=== PATIENT | male | born 1960 | race Caucasian/White ===

== ENCOUNTER 2018-02-25 12:03 | Inpatient (IN) | payer OTHER ==
[2018-02-25 16:22] VITALS: BMI 27.0
--- NOTE | 2018-02-25 17:32 | HP ---
CIWA Score - CIWA Score Nausea/Vomitin-No Nausea/No Vomiting Muscle Tremors: 3 Anxiety: 4-Mod. Anxious/Guarded Agitation: 3 Paroxysmal Sweats: 2 Orientation: 0-Oriented Tacttile Disturbances: 0-None Auditory Disturbances: 0-None Visual Disturbances: 1-Very Mild Sensitivity Headache: 0-None Present CIWA-Ar Total Score: 13 Admission ROS BHS - HPI Chief Complaint: I am here for detox Allergies/Adverse Reactions: Allergies Allergy/AdvReac Type Severity Reaction Status Date / Time No Known Allergies Allergy Verified 02/25/18 17:03 History of Present Illness: Patient is a 57 yo male with hx of heroin, alcohol and nicotine dependence is here fro detox. [facility]MTP at [place] [id number] [address] [phone], on methadone 60 mg daily, last medicated today. PMHX: DM II (oral meds ), HTN, Hep C, GERD, Liver cirrhosis, anxiety, insomnia, depression, bipolar dx. Denies suicidal / homicidal ideation . Reports past hx of suicide 3 years ago by attempting to overdose on Trazodone. [place] hx of seizures and blackouts. Last detox at [facility] 2 years go. Exam Limitations: No Limitations - Ebola screening Have you traveled outside of the country in the last 21 days: No (N) Have you had contact with anyone from an Ebola affected area: No Have you been sick,other than usual withdrawal symptoms: No Do you have a fever: No - Review of Systems Constitutional: Chills, Loss of Appetite, Changes in sleep, Unintentional Wgt. Loss EENT: reports: Blurred Vision (wears glasses) Respiratory: reports: SOB with Exertion (mostly at night) Cardiac: reports: No Symptoms Reported GI: reports: Indigestion Musculoskeletal: reports: No Symptoms Reported Integumentary: reports: No Symptoms Reported Neuro: reports: No Symptoms reported Endocrine: reports: Increased Thirst Hematology: reports: No Symptoms Reported Psychiatric: reports: Orientated x3, Anxious Other Systems: Reviewed and Negative Patient History - Patient Medical History Hx Anemia: No Hx Asthma: No Hx Chronic Obstructive Pulmonary Disease (COPD): No Hx Cancer: No Hx Cardiac Disorders: No Hx Congestive Heart Failure: No Hx Hypertension: Yes (on meds.) Hx Hypercholesterolemia: No Hx Pacemaker: No HX Cerebrovascular Accident: No Hx Seizures: No Hx Dementia: No Hx Diabetes: Yes (Type II) Hx Gastrointestinal Disorders: Yes (Acid reflux) Hx Liver Disease: Yes (Cirrhosis and Hep C ) Hx Genitourinary Disorders: No Hx Sexually Transmitted Disorders: No Hx Renal Disease (ESRD): No Hx Thyroid Disease: No Hx Human Immunodeficiency Virus (HIV): No (last teste 1.5 years ago ) Hx Hepatitis C: Yes (no tx ) Hx Depression: Yes Hx Suicide Attempt: Yes (Tried to overdose on trazadone.) Hx Bipolar Disorder: Yes Hx Schizophrenia: No - Patient Surgical History Past Surgical History: Yes Hx Abdominal Surgery: Yes (Umbillical and R inguinal hernia repair) Anesthesia Reaction: No - PPD History Previous Implant?: Yes Documented Results: Negative w/o proof Implanted On Prior [facility] Admission?: No - Reproductive History Patient is a Female of Child Bearing Age (11 -55 yrs old): No - Smoking Cessation Smoking history: Current every day smoker Have you smoked in the past 12 months: Yes Aproximately how many cigarettes per day: 20 Hx Chewing Tobacco Use: No Initiated information on smoking cessation: Yes 'Breaking Loose' booklet given: 02/25/18 - Substance & Tx. History Hx Alcohol Use: Yes Hx Substance Use: Yes Substance Use Type: Alcohol, Heroin Hx Substance Use Treatment: Yes (Last detox at [facility] 2 years go) - Substances Abused Alcohol Route: Oral Frequency: Daily Amount used: 2 pints vodka Age of first use: 20 Date of Last Use: 02/25/18 Family Disease History - Family Disease History Family Disease History: Diabetes: Mother ( ) Admission Physical Exam S - Vital Signs Vital Signs: Vital Signs - 24 hr 02/25/18 16:19 Temperature 97.7 F Pulse Rate 79 Respiratory 20 Rate Blood Pressure 166/99 - Physical General Appearance: Yes: Appropriately Dressed, Mild Distress, Sweating, Anxious , Other (restless) HEENTM: Yes: EOMI, Hearing grossly Normal, Normal ENT Inspection, Normocephalic , Normal Voice, RAJAT, Pharynx Normal, Tm's normal Respiratory: Yes: Chest Non-Tender, Lungs Clear, Normal Breath Sounds, No Respiratory Distress, No Accessory Muscle Use Neck: Yes: No masses,lesions,Nodules, Trachea in good position Breast: Yes: Breast Exam Deferred Cardiology: Yes: Regular Rhythm, Regular Rate Abdominal: Yes: Normal Bowel Sounds, Non Tender, Flat, Soft Genitourinary: Yes: Within Normal Limits Back: Yes: Normal Inspection Musculoskeletal: Yes: full range of Motion, Gait Steady, Pelvis Stable Extremities: Yes: Normal Capillary Refill, Normal Inspection, Normal Range of Motion, Non-Tender Neurological: Yes: fence repairman II-XII NML intact, Fully Oriented, Alert, Motor Strength 5/5, Depressed Affect Integumentary: Yes: Normal Color, Warm, Diaphoresis Lymphatic: Yes: Within Normal Limits - Diagnostic (1) Methadone maintenance therapy patient Current Visit: Yes Status: Acute (2) Alcohol dependence with uncomplicated withdrawal Current Visit: Yes Status: Acute (3) Diabetes mellitus with hyperglycemia Current Visit: Yes Status: Chronic Qualifiers: Diabetes mellitus type: type 2 Diabetes mellitus fci insulin use: without fci use Qualified Code(s): E11.65 - Type 2 diabetes mellitus with hyperglycemia (4) Hypertension Current Visit: Yes Status: Chronic Qualifiers: Hypertension type: essential hypertension Qualified Code(s): I10 - Essential (primary) hypertension (5) Liver cirrhosis Current Visit: Yes Status: Chronic Qualifiers: Ascites presence: unspecified (6) Hepatitis C Current Visit: Yes Status: Chronic Qualifiers: Viral hepatitis chronicity: chronic (7) GERD (gastroesophageal reflux disease) Current Visit: Yes Status: Chronic Qualifiers: Esophagitis presence: without esophagitis Qualified Code(s): K21.9 - Gastro -esophageal reflux disease without esophagitis (8) Anxious mood Current Visit: Yes Status: Acute Cleared for Admission S - Detox or Rehab [facility] Level of Care: Medically Managed Detox Regimen/Protocol: Librium [facility] Breath Alcohol Content Breath Alcohol Content: 0 Urine Drug Screen - Results Drug Screen Negative: No Urine Drug Screen Results: OPI-Opiates, MTD-Methadone, TCA-Tricyclic Antidepress
[2018-02-25] MEDS ORDERED: MAG HYDROX/AL HYDROX/SIMETH 30 ML UNIT-DOSE CUP PO PRN (17:45)
[2018-02-25] MEDS ORDERED: chlordiazePOXIDE HCL 25 MG CAPSULE PO PRN (17:45)
[2018-02-25] MEDS ORDERED: MAGNESIUM HYDROX 2400MG/30ML ORAL SUSPENSION 30 ML CUP PO PRN (17:45)
[2018-02-25] MEDS ORDERED: ACETAMINOPHEN 325 MG TABLET (FP) PO PRN (17:45)
[2018-02-25] MEDS ORDERED: hydrOXYzine PAMOATE 50 MG CAPSULE (FP) PO PRN (17:45)
[2018-02-25] MEDS ORDERED: P-EPHED 60MG/TRIPROLIDI 2.5MG TABLET PO PRN (17:45)
[2018-02-25] MEDS ORDERED: LOPERAMIDE HCL 2 MG CAPSULE PO PRN (17:45)
[2018-02-25] MEDS ORDERED: IBUPROFEN 400 MG TABLET (FP) PO PRN (17:45)
[2018-02-25] MEDS ORDERED: NICOTINE POLACRILEX 2 MG GUM BC PRN (17:45)
[2018-02-25] MEDS ORDERED: MAGNESIUM CITRATE 300 ML BOTTLE PO PRN (17:45)
[2018-02-25] MEDS ORDERED: guaiFENesin/D-METHORPHAN HB 10 ML UNIT-DOSE CUPS PO PRN (17:45)
[2018-02-25] MEDS ORDERED: MENTHOL/PHENOL 1 EACH UD MM PRN (17:45)
[2018-02-25] MEDS ORDERED: chlordiazePOXIDE HCL 25 MG CAPSULE PO ONE (18:15)
[2018-02-25] MEDS: metFORMIN HCL 500 MG TABLET (FP) PO SCH (18:58)
[2018-02-25] MEDS ORDERED: MELATONIN 5 MG TABLETS PO PRN (22:00)
[2018-02-25] MEDS: ATORVASTATIN CA 20 MG TABLET (FP) PO SCH (22:20)
[2018-02-25] MEDS: chlordiazePOXIDE HCL 25 MG CAPSULE PO SCH (22:20)
[2018-02-25] MEDS: THIAMINE HCL 100 MG TABLET (FP) PO SCH (22:20)
[2018-02-25 23:28] LABS: URINE APPEARANCE CLEAR; URINE BILIRUBIN NEGATIVE (<2.0 mg/dL); URINE COLOR YELLOW; URINE GLUCOSE (UA) 3+ (NEGATIVE); URINE KETONE NEGATIVE (NEGATIVE); URINE LEUK ESTERASE NEGATIVE (NEGATIVE); URINE NITRITE NEGATIVE (NEGATIVE); URINE PROTEIN NEGATIVE (NEGATIVE); URINE UROBILINOGEN NEGATIVE mg/dL (0.2-1.0)
[2018-02-26] MEDS: chlordiazePOXIDE HCL 25 MG CAPSULE PO SCH ×4 (05:51→22:18)
[2018-02-26] MEDS: metFORMIN HCL 500 MG TABLET (FP) PO SCH ×2 (06:26→17:39)
[2018-02-26] MEDS ORDERED: INSULIN (NOVOLOG) ASPART 100 UNITS/ML 10ML VIAL ONE ×2 (06:39→16:52)
[2018-02-26] MEDS ORDERED: INSULIN SLIDING SCALE (NOVOLOG) 1 VIAL SQ SCH (07:00)
[2018-02-26] MEDS ORDERED: METHADONE HCL 10 MG TABLET PO SCH (08:45)
[2018-02-26] MEDS ORDERED: METHADONE HCL 10 MG TABLET ONE (10:07)
[2018-02-26] MEDS ORDERED: METHADONE HCL 40 MG DISPERSABLE TABLET ONE (10:07)
[2018-02-26 11:01] LABS: MEAN PLT VOLUME 9.2 fl (7.5-11.1)
[2018-02-26 11:04] LABS: HEMOGLOBIN 12.4 GM/dL (11.7-16.9); MCH 29.6 pg (25.7-33.7); MCHC 34.5 g/dl (32.0-35.9); MEAN CELL VOLUME 85.9 fl (80-96); PLATELET COUNT 168 K/MM3 (134-434); RBC 4.19 M/mm3 (4.00-5.60); RDW 13.3 % (11.9-15.9)
--- NOTE | 2018-02-26 11:22 | CONSULT ---
[facility] Psychiatric Consult - Data Date of interview: 02/26/18 Admission source: [facility] Identifying data: This is a 57 year old single male unemployed and supported on SSI, residing alone in [facility]. Substance Abuse History: Reports using heroin injecting and snorting daily 20 bags, on MMTP 60 mg, daily alcohol consumption 2 pints. Medical History: DM II (oral meds ), HTN, Hep C, GERD, Liver cirrhosis, Psychiatric History: Patient reports history of anxiety and insomnia, reports a few hospitalizations but was not sure for detox/rehab or psychiatric unit, thinks he has a bipolar disorder, he brought medical record from [facility] recorder while was in rehabilitation. Reports he is anxious and unable to sleep, as per medical record was on Trazodone and Ambien for insomnia. Physical/Sexual Abuse/Trauma History: denies. Mental Status Exam - Mental Status Exam Alert and Oriented to: Time, Place, Person Cognitive Function: Grossly Intact Patient Appearance: Well Groomed Mood: Anxious Affect: Appropriate, Mood Congruent Patient Behavior: Appropriate, Cooperative Speech Pattern: Appropriate Voice Loudness: Normal Thought Process: Intact, Goal Oriented Thought Disorder: Not Present Hallucinations: Denies Suicidal Ideation: Denies Homicidal Ideation: Denies Insight/Judgement: Fair Sleep: Poorly, Difficulty falling asleep Appetite: Fair Muscle strength/Tone: Normal Gait/Station: Normal Psychiatric Findings - Problem List ([place] 1, 2,3) (1) Insomnia Current Visit: Yes Status: Acute (2) Alcohol dependence with uncomplicated withdrawal Current Visit: Yes Status: Acute (3) Methadone maintenance therapy patient Current Visit: Yes Status: Acute - Initial Treatment Plan Initial Treatment Plan: will continue detox. protocol, add Ambien 10 mg po hs, moitor progress as needed.
[2018-02-26] MEDS: PRENATAL VITAMINS W/ FOLIC ACID TABLET (FP) PO SCH (11:31)
[2018-02-26] MEDS: LISINOPRIL 20 MG TABLET (FP) PO SCH (11:31)
[2018-02-26] MEDS: CHLORTHALIDONE 25 MG TABLET PO SCH (11:32)
[2018-02-26] MEDS: METHADONE 40 MG, METHADONE 30 MG PO SCH (11:32)
[2018-02-26] MEDS: NICOTINE 21 MG/24 HOURS TOPICAL PATCH TD SCH (11:33)
--- NOTE | 2018-02-26 12:02 | EKG ---
Test Reason : Blood Pressure : / mmHG Vent. Rate : 075 BPM Atrial Rate : 075 BPM P-R Int : 136 ms QRS Dur : 082 ms QT Int : 392 ms P-R-T Axes : 069 072 059 degrees QTc Int : 437 ms NORMAL SINUS RHYTHM NORMAL ECG NO PREVIOUS ECGS AVAILABLE Confirmed by ALISSON GOTTLIEB MD ([id number]) on 02/26/2018 12:02:14 PM Referred By: Confirmed By:ALISSON GOTTLIEB MD
[2018-02-26 12:12] LABS: CHLORIDE 99 mmol/L (98-107); POTASSIUM 3.8 mmol/L (3.5-5.1); SODIUM 137 mmol/L (136-145)
[2018-02-26 12:39] LABS: ALBUMIN 3.3 g/dl (3.4-5.0); ALK PHOS 140 U/L (45-117); ANION GAP 12 (8-16); BILIRUBIN,TOTAL 1.1 mg/dL (0.2-1.0); BLOOD UREA NITROGEN 15 mg/dL (7-18); CALCIUM 7.8 mg/dL (8.5-10.1); CO2 26 mmol/L (21-32); CREATININE 0.9 mg/dL (0.7-1.3); SGOT/AST 14 U/L (15-37); SGPT/ALT 26 U/L (12-78); TOT PROT 5.9 g/dl (6.4-8.2)
[2018-02-26 12:41] LABS: GLUCOSE,RANDOM 392 mg/dL (74-106)
--- NOTE | 2018-02-26 13:01 | PN ---
[facility] CIWA - CIWA Score Nausea/Vomitin Muscle Tremors: 3 Anxiety: 3 Agitation: 3 Paroxysmal Sweats: 1-Minimal Palms Moist Orientation: 0-Oriented Tacttile Disturbances: 1-Very Mild Itch/Numbness Auditory Disturbances: 1-Very Mild Visual Disturbances: 0-None Headache: 2-Mild CIWA-Ar Total Score: 17 BHS Progress Note (SOAP) Subjective: ALERT,IRRITABLE,ANXIOUS,INTERRUPTED SLEEP,TREMOR Objective: 02/26/18 12:58 Vital Signs Temperature 98.0 F 02/26/18 10:16 Pulse Rate 65 02/26/18 10:16 Respiratory Rate 16 02/26/18 10:16 Blood Pressure 137/81 02/26/18 10:16 O2 Sat by Pulse Oximetry (%) EKG NSR,PROLONG QT 392/437 NO CHEST PAIN,NO SOB,NO DIZZINESS Laboratory Last Values WBC 5.0 K/mm3 (4.0-10.0) 02/26/18 07:00 RBC 4.19 M/mm3 (4.00-5.60) 02/26/18 07:00 Hgb 12.4 GM/dL (11.7-16.9) 02/26/18 07:00 Hct 36.0 % (35.4-49) 02/26/18 07:00 MCV 85.9 fl (80-96) 02/26/18 07:00 MCH 29.6 pg (25.7-33.7) 02/26/18 07:00 MCHC 34.5 g/dl (32.0-35.9) 02/26/18 07:00 RDW 13.3 % (11.9-15.9) 02/26/18 07:00 Plt Count 168 K/MM3 (134-434) 02/26/18 07:00 MPV 9.2 fl (7.5-11.1) 02/26/18 07:00 Sodium 137 mmol/L (136-145) 02/26/18 07:00 Potassium 3.8 mmol/L (3.5-5.1) 02/26/18 07:00 Chloride 99 mmol/L (98-107) 02/26/18 07:00 Carbon Dioxide 26 mmol/L (21-32) 02/26/18 07:00 Anion Gap 12 (8-16) 02/26/18 07:00 BUN 15 mg/dL (7-18) 02/26/18 07:00 Creatinine 0.9 mg/dL (0.7-1.3) 02/26/18 07:00 Creat Clearance w eGFR > 60 (>60) 02/26/18 07:00 POC Glucometer 339 UNITS (80-120) 02/26/18 05:51 Random Glucose 392 mg/dL (74-106) H* 02/26/18 07:00 Calcium 7.8 mg/dL (8.5-10.1) L 02/26/18 07:00 Total Bilirubin 1.1 mg/dL (0.2-1.0) H 02/26/18 07:00 AST 14 U/L (15-37) L 02/26/18 07:00 ALT 26 U/L (12-78) 02/26/18 07:00 Alkaline Phosphatase 140 U/L (45-117) H 02/26/18 07:00 Total Protein 5.9 g/dl (6.4-8.2) L 02/26/18 07:00 Albumin 3.3 g/dl (3.4-5.0) L 02/26/18 07:00 Urine Color Yellow 02/25/18 23:20 Urine Appearance Clear 02/25/18 23:20 Urine pH 5.0 (5.0-8.0) 02/25/18 23:20 Ur Specific [place] 1.041 (1.001-1.035) H 02/25/18 23:20 Urine Protein Negative (NEGATIVE) 02/25/18 23:20 Urine Glucose (UA) 3+ (NEGATIVE) H 02/25/18 23:20 Urine Ketones Negative (NEGATIVE) 02/25/18 23:20 Urine Blood Negative (NEGATIVE) 02/25/18 23:20 Urine Nitrite Negative (NEGATIVE) 02/25/18 23:20 Urine Bilirubin Negative (<2.0 mg/dL) 02/25/18 23:20 Urine Urobilinogen Negative mg/dL (0.2-1.0) 02/25/18 23:20 Ur Leukocyte Esterase Negative (NEGATIVE) 02/25/18 23:20 02/26/18 13:00 LABS PENDING Assessment: 02/26/18 13:00 WITHDRAWAL SYMPTOM Plan: CONTINUE DETOX,BGM MONITORING,WITH INSULIN COVERAGE
[2018-02-26] MEDS: INSULIN (NOVOLOG) ASPART 100 UNITS/ML 10ML VIAL SQ SCH (17:39)
[2018-02-26] MEDS: THIAMINE HCL 100 MG TABLET (FP) PO SCH (22:18)
[2018-02-26] MEDS: ZOLPIDEM TARTRATE 10 MG TABLET (PARK CARE ONLY) PO PRN (22:18)
[2018-02-26] MEDS: ATORVASTATIN CA 20 MG TABLET (FP) PO SCH (22:18)
[2018-02-27] MEDS: chlordiazePOXIDE HCL 25 MG CAPSULE PO SCH ×3 (04:34→17:54)
[2018-02-27] MEDS ORDERED: METHADONE HCL 40 MG DISPERSABLE TABLET ONE (04:38)
[2018-02-27] MEDS ORDERED: METHADONE HCL 10 MG TABLET ONE (04:39)
[2018-02-27] MEDS ORDERED: INSULIN (NOVOLOG) ASPART 100 UNITS/ML 10ML VIAL ONE ×4 (06:29→17:33)
[2018-02-27] MEDS: METHADONE 40 MG, METHADONE 30 MG PO SCH (07:16)
[2018-02-27] MEDS: metFORMIN HCL 500 MG TABLET (FP) PO SCH ×2 (07:19→17:53)
[2018-02-27] MEDS: INSULIN (NOVOLOG) ASPART 100 UNITS/ML 10ML VIAL SQ SCH ×4 (07:19→22:23)
[2018-02-27] MEDS: CHLORTHALIDONE 25 MG TABLET PO SCH (10:10)
[2018-02-27] MEDS: PRENATAL VITAMINS W/ FOLIC ACID TABLET (FP) PO SCH (10:10)
[2018-02-27] MEDS: NICOTINE 21 MG/24 HOURS TOPICAL PATCH TD SCH (10:10)
[2018-02-27] MEDS: LISINOPRIL 20 MG TABLET (FP) PO SCH (10:10)
--- NOTE | 2018-02-27 12:19 | PN ---
S CIWA - CIWA Score Nausea/Vomitin Muscle Tremors: 3 Anxiety: 3 Agitation: 3 Paroxysmal Sweats: 1-Minimal Palms Moist Orientation: 0-Oriented Tacttile Disturbances: 1-Very Mild Itch/Numbness Auditory Disturbances: 1-Very Mild Visual Disturbances: 0-None Headache: 2-Mild CIWA-Ar Total Score: 17 BHS Progress Note (SOAP) Subjective: ALERT,IRRITABLE,ANXIOUS,INTERRUPTED SLEEP,TREMOR Objective: 02/27/18 12:16 Vital Signs Temperature 97.7 F 02/27/18 09:49 Pulse Rate 65 02/27/18 09:49 Respiratory Rate 18 02/27/18 09:49 Blood Pressure 126/76 02/27/18 09:49 O2 Sat by Pulse Oximetry (%) Laboratory Last Values WBC 5.0 K/mm3 (4.0-10.0) 02/26/18 07:00 RBC 4.19 M/mm3 (4.00-5.60) 02/26/18 07:00 Hgb 12.4 GM/dL (11.7-16.9) 02/26/18 07:00 Hct 36.0 % (35.4-49) 02/26/18 07:00 MCV 85.9 fl (80-96) 02/26/18 07:00 MCH 29.6 pg (25.7-33.7) 02/26/18 07:00 MCHC 34.5 g/dl (32.0-35.9) 02/26/18 07:00 RDW 13.3 % (11.9-15.9) 02/26/18 07:00 Plt Count 168 K/MM3 (134-434) 02/26/18 07:00 MPV 9.2 fl (7.5-11.1) 02/26/18 07:00 Sodium 137 mmol/L (136-145) 02/26/18 07:00 Potassium 3.8 mmol/L (3.5-5.1) 02/26/18 07:00 Chloride 99 mmol/L (98-107) 02/26/18 07:00 Carbon Dioxide 26 mmol/L (21-32) 02/26/18 07:00 Anion Gap 12 (8-16) 02/26/18 07:00 BUN 15 mg/dL (7-18) 02/26/18 07:00 Creatinine 0.9 mg/dL (0.7-1.3) 02/26/18 07:00 Creat Clearance w eGFR > 60 (>60) 02/26/18 07:00 POC Glucometer 467 UNITS (80-120) 02/27/18 04:35 Random Glucose 392 mg/dL (74-106) H* 02/26/18 07:00 Calcium 7.8 mg/dL (8.5-10.1) L 02/26/18 07:00 Total Bilirubin 1.1 mg/dL (0.2-1.0) H 02/26/18 07:00 AST 14 U/L (15-37) L 02/26/18 07:00 ALT 26 U/L (12-78) 02/26/18 07:00 Alkaline Phosphatase 140 U/L (45-117) H 02/26/18 07:00 Total Protein 5.9 g/dl (6.4-8.2) L 02/26/18 07:00 Albumin 3.3 g/dl (3.4-5.0) L 02/26/18 07:00 Urine Color Yellow 02/25/18 23:20 Urine Appearance Clear 02/25/18 23:20 Urine pH 5.0 (5.0-8.0) 02/25/18 23:20 Ur Specific [place] 1.041 (1.001-1.035) H 02/25/18 23:20 Urine Protein Negative (NEGATIVE) 02/25/18 23:20 Urine Glucose (UA) 3+ (NEGATIVE) H 02/25/18 23:20 Urine Ketones Negative (NEGATIVE) 02/25/18 23:20 Urine Blood Negative (NEGATIVE) 02/25/18 23:20 Urine Nitrite Negative (NEGATIVE) 02/25/18 23:20 Urine Bilirubin Negative (<2.0 mg/dL) 02/25/18 23:20 Urine Urobilinogen Negative mg/dL (0.2-1.0) 02/25/18 23:20 Ur Leukocyte Esterase Negative (NEGATIVE) 02/25/18 23:20 RPR Titer Nonreactive (NONREACTIVE) 02/26/18 07:00 HIV 1&2 Antibody Screen Negative 02/26/18 07:00 HIV P24 Antigen Negative 02/26/18 07:00 Assessment: 02/27/18 12:17 WITHDRAWAL SYMPTOM Plan: CONTINUE DETOX,HB A1C,DIETRICIAN CONSULTATION,BGM MONITORING WITH INSULIN COVERAGE
[2018-02-27] MEDS: ATORVASTATIN CA 20 MG TABLET (FP) PO SCH (22:20)
[2018-02-27] MEDS: THIAMINE HCL 100 MG TABLET (FP) PO SCH (22:20)
[2018-02-27] MEDS: chlordiazePOXIDE 5 MG CAPSULE PO SCH (22:20)
[2018-02-27] MEDS: ZOLPIDEM TARTRATE 10 MG TABLET (PARK CARE ONLY) PO PRN (22:22)
[2018-02-28] MEDS ORDERED: METHADONE HCL 40 MG DISPERSABLE TABLET ONE (04:56)
[2018-02-28] MEDS ORDERED: METHADONE HCL 10 MG TABLET ONE (04:56)
[2018-02-28] MEDS: chlordiazePOXIDE 5 MG CAPSULE PO SCH ×3 (05:09→16:50)
[2018-02-28] MEDS: METHADONE 40 MG, METHADONE 30 MG PO SCH (05:10)
[2018-02-28] MEDS: metFORMIN HCL 500 MG TABLET (FP) PO SCH ×2 (07:57→16:51)
[2018-02-28] MEDS: INSULIN (NOVOLOG) ASPART 100 UNITS/ML 10ML VIAL SQ SCH ×3 (07:57→16:51)
[2018-02-28] MEDS ORDERED: INSULIN (NOVOLOG) ASPART 100 UNITS/ML 10ML VIAL ONE ×3 (07:59→16:48)
[2018-02-28] MEDS: CHLORTHALIDONE 25 MG TABLET PO SCH (10:42)
[2018-02-28] MEDS: PRENATAL VITAMINS W/ FOLIC ACID TABLET (FP) PO SCH (10:43)
[2018-02-28] MEDS: NICOTINE 21 MG/24 HOURS TOPICAL PATCH TD SCH (10:43)
[2018-02-28] MEDS: LISINOPRIL 20 MG TABLET (FP) PO SCH (10:43)
[2018-02-28 14:08] VITALS: BP 130/70; PULSE 77; TEMP 97
--- NOTE | 2018-02-28 16:32 | PN ---
BHS Progress Note (SOAP) Subjective: shakes sweats sleep disturbance Objective: 02/28/18 16:31 A & O x 3 Ambulating steadily on unit Vital Signs Temperature 97.0 F L 02/28/18 14:07 Pulse Rate 77 02/28/18 14:07 Respiratory Rate 18 02/28/18 14:07 Blood Pressure 130/70 02/28/18 14:07 O2 Sat by Pulse Oximetry (%) Assessment: 02/28/18 16:31 withdrawal sx Plan: continue detox
--- NOTE | 2018-02-28 18:30 | DS ---
[facility] Detox Discharge Summary Admission Date: 02/25/18 Discharge Date: 02/28/18 - History Additional Comments: Got a call that pt wants to leave, Pt did not wait for provider evaluation, he left prior to me getting there. Pt was A & ox 3, had steady gait, not in acute distress Pertinent Past History: DM, GERD, Hep c - Physical Exam Results Vital Signs: Vital Signs Temperature 97.0 F L 02/28/18 14:07 Pulse Rate 77 02/28/18 14:07 Respiratory Rate 18 02/28/18 14:07 Blood Pressure 130/70 02/28/18 14:07 O2 Sat by Pulse Oximetry (%) Pertinent Admission Physical Exam Findings: withdrawal sx - Medication Discharge Medications: Ambulatory Orders Atorvastatin Calcium [Lipitor] 20 mg PO HS 02/25/18 Chlorthalidone [Hygroton -] 25 mg PO DAILY 02/25/18 Lisinopril 20 mg PO DAILY 02/25/18 Metformin HCl 500 mg PO BID 02/25/18 - Diagnosis (1) Alcohol dependence with uncomplicated withdrawal Status: Acute (2) Methadone maintenance therapy patient Status: Acute (3) Nicotine dependence Status: Acute (4) Anxious mood Status: Chronic (5) Insomnia Status: Acute (6) Diabetes mellitus with hyperglycemia Status: Chronic Qualifiers: Diabetes mellitus type: type 2 Diabetes mellitus long-term insulin use: without promotions officer use Qualified Code(s): E11.65 - Type 2 diabetes mellitus with hyperglycemia (7) GERD (gastroesophageal reflux disease) Status: Chronic Qualifiers: Esophagitis presence: without esophagitis Qualified Code(s): K21.9 - Gastro -esophageal reflux disease without esophagitis (8) Hepatitis C Status: Chronic Qualifiers: Viral hepatitis chronicity: chronic (9) Hypertension Status: Chronic Qualifiers: Hypertension type: essential hypertension Qualified Code(s): I10 - Essential (primary) hypertension (10) Liver cirrhosis Status: Chronic Qualifiers: Ascites presence: unspecified - AMA Did Patient Leave Against Medical Advice: Yes
[2018-02-28] MEDS ORDERED: chlordiazePOXIDE HCL 10 MG CAPSULE PO SCH (23:00)
== END 2018-02-28 05:48 | disposition left against medical advice (07) | DRG 894 ==
LOC: YASAS 12:03 → Y6N 17:43
PROVIDERS: ADMIT Surgery; ATTEND Surgery
PROC: HZ2ZZZZ Detoxification Services for Substance Abuse Treatment (ICD-10-PCS; principal; 2018-02-25)
DX: F11.20 Opioid dependence, uncomplicated (principal); F10.230 Alcohol dependence with withdrawal, uncomplicated; F17.210 Nicotine dependence, cigarettes, uncomplicated; F41.9 Anxiety disorder, unspecified; G47.00 Insomnia, unspecified; I10 Essential (primary) hypertension; E11.65 Type 2 diabetes mellitus with hyperglycemia; Z79.84 Long term (current) use of oral hypoglycemic drugs; B18.2 Chronic viral hepatitis C; K74.60 Unspecified cirrhosis of liver
CPT/HCPCS: 36415; 80053; 81003; 82962; 85027; 86593; 87389; 93005; 93010